=== PATIENT | male | born 1970 ===

== ENCOUNTER 2024-11-16 15:13 | Outpatient (REF) | payer BC, SELFPAY ==
[2024-11-16 21:38] LABS: HCT 45.5 % (40.0-50.0); HGB 15.6 g/dL (13.5-17.5); MCH 30.7 pg (27.0-33.0); MCHC 34.3 % (32.0-36.0); MCV 90 fL (80-95); MPV 9.9 fL (8.0-11.0); Platelet Count 261 10^3/uL (130-400); RBC 5.08 10^6/uL (4.36-5.78); RDW 12.4 % (11.8-14.1); RDW-SD 41.3 fL; WBC 7.79 10^3/uL (4.4-10.8)
[2024-11-16 21:49] LABS: ALT 24 U/L (16-63); AST 27 U/L (15-37); Albumin 3.9 g/dL (3.4-5.0); Alkaline Phosphatase 71 U/L (46-116); Anion Gap 9.9 mmol/L (3-11); BUN 13 mg/dL (7-18); Bilirubin, Total 2.5 mg/dL (0.2-1.0); CO2 26.1 mmol/L (21.0-32.0); CREATININE 0.8 mg/dL (0.70-1.30); Calcium 8.6 mg/dL (8.5-10.1); Calculated LDL 76 mg/dL (<100); Chloride 105 mmol/L (98-107); Cholesterol 150 mg/dL (<200); Estimated GFR 105.82 (mL/min/1.73m2); Glucose 121 mg/dL (74-106); HDL Cholesterol 51 mg/dL (>or=40); Potassium 4.6 mmol/L (3.5-5.1); Sodium 141 mmol/L (136-145); Triglyceride 116 mg/dL (<150)
== END 2024-11-16 15:14 | disposition home or self-care (01) ==
LOC: NCHCN 15:13
PROVIDERS: Visit Provider Internal Medicine
DX: I10 Essential (primary) hypertension (principal)
CPT/HCPCS: 80053; 80061; 85027

== ENCOUNTER 2025-01-23 18:47 | Outpatient (REF) | payer BC, SELFPAY ==
[2025-01-23 15:26] LABS: Anion Gap 5.1 mmol/L (3-11); BUN 10 mg/dL (7-18); CO2 30.9 mmol/L (21.0-32.0); Calcium 8.9 mg/dL (8.5-10.1); Chloride 104 mmol/L (98-107); Estimated GFR 109.50 (mL/min/1.73m2); Glucose 87 mg/dL (74-106); Potassium 4.6 mmol/L (3.5-5.1); Sodium 140 mmol/L (136-145)
== END 2025-01-23 18:48 | disposition home or self-care (01) ==
LOC: NCHCN 18:47
PROVIDERS: Visit Provider Internal Medicine
DX: I10 Essential (primary) hypertension (principal)
CPT/HCPCS: 80048